=== PATIENT | male | born 1985 ===

== ENCOUNTER 2025-03-10 07:00 | Day surgery (SDC) | payer OTHER ==
[2025-03-10] MEDS ORDERED: CEFAZOLIN SODIUM 1,000 MG VIAL ONE (08:21)
[2025-03-10] MEDS ORDERED: SUGAMMADEX SODIUM 200 MG/2 ML VIAL IV ONE (10:57)
== END 2025-03-10 15:20 | disposition home or self-care (01) ==
LOC: CIR.AMB 07:00
PROVIDERS: ATTEND Surgery
DX: K81.1 Chronic cholecystitis (principal)